=== PATIENT | female | born 1980 | race Hispanic/Latino ===

== ENCOUNTER 2022-07-23 02:05 | Emergency (ER) | payer BC ==
--- OUTSIDE RECORDS SUMMARY | 2022-07-23 02:09 | XMS REPORT | Continuity of Care Document ---
:1980 Author Organization [facility] t Address [address] [place] [address] Care Team Providers Name Role Phone Raquel Dyer MD Primary Care Physician NANCY BRAND Attending Clinician Unavailable Nancy Spear Attending Clinician [phone] Doctor Unassigned, [place] Attending Clinician Unavailable DON DUNN Attending Clinician Unavailable LAB90 Attending Clinician Unavailable Raquel Dyer MD Attending Clinician [phone] Provider, [facility] Attending Clinician Unavailable Maddi Finch Attending Clinician MADDI QURESHI Attending Clinician Unavailable Shayan Posada Attending Clinician SHAYAN WALLER Attending Clinician Unavailable Petros HUBBARD, Andreia Womack Attending Clinician Payers Payer Name Policy Type Policy Number Effective Date Expiration Date [id number]22 00:00:00 OUT OF STATE [facility] 2 [id number] 2021 00:00:00 Problems Condition Condition Condition Status Onset Resolution Last Treating Co mments Source Name Details Category Date Date Treatment Clinician Date Well adult Well adult Disease Active 2021-03 K elsey exam exam 2 Seybold 00:00: - 00 Externa l Mixed Mixed Disease Active 2021-03 Mikki hyperlipid hyperlipid 2 Se ybold emia emia 00:00: - 00 Externa l Class 1 Class 1 Disease Active 2021-03 Mikki obesity obesity 04-12 Seybold due to due to 00:00: - excess excess 00 Externa calories calories l without without serious serious comorbidit comorbidit y with y with body mass body mass index index (BMI) of (BMI) of 30.0 to 30.0 to 30.9 in 30.9 in adult adult Palpitatio Palpitatio Disease Active 2021-03 K elsey ns ns 2 Seybold 00:00: - 00 Externa l Vagina Vagina Disease Active Univers bleeding bleeding 04-14 ity of 00:00: [place] 00 Medical Branch Heart Heart Disease Active Overview: Univer s murmur murmur 03-30 Formattin ity of 00:00: g of this [place] 00 note Medical might be Branch different from the original. Reports since she was very young, asymptoma tic Supervisio Supervisio Disease Active 2013-03 U nivers n of other n of other 0-28 it y of normal normal 00:00: [place] , , 00 Me dical first first Branch trimester trimester Encounter Encounter Disease Active Overview: Univers for for 08-02 Formattin ity of 00:00: [place] of [place] screening screening 00 note Medi jose of mother of mother might be Br anch different from the original. ICD10 Diagnosis Term Garde Manager Utility High-risk High-risk Disease Active Overview: Univers 08-02 Formattin i ty of 00:00: g of this [place] 00 note Medical might be Branch different from the original. ICD10 Diagnosis Term Garde Manager Utility Antepartum Antepartum Disease Active Overview : Univers genitourin genitourin 08-02 Formattin ity of janine tract janine tract 00:00: g of this [place] infection infection 00 note Medi jose might be Branch different from the original. ICD10 Diagnosis Term Garde Manager Utility Acute Acute Disease Active Overview: Univer s upper upper 08-02 Formattin ity of respirator respirator 00:00: g of this [place] y y 00 note Medical infection infection might be Br anch different from the original. ICD10 Diagnosis Term Garde Manager Utility Disease Active Overview : Univers anemia anemia 5-24 Formattin ity of 00:00: g of this [place] 00 note Medical might be Branch different from the original. ICD10 Diagnosis Term Garde Manager Utility Disease Active Overview: Un daly delivery delivery 5-22 Formattin ity of delivered delivered 00:00: g of this [place] 00 note Medical might be Branch different from the original. ICD10 Diagnosis Term Garde Manager Utility Overweight Overweight Disease Active Overview : Univers Formattin ity of g of this [place] note Medical might be Branch different from the original. ICD10 Diagnosis Term Garde Manager Utility Other Other Disease Active Univers constipati constipati it y of on on [facility] Previous Previous Disease Active Unive rs [place]y of [place], [place] antepartum antepartum Me dical condition condition Bran ch or or complicati complicati on on Abdominal Abdominal Disease Active Overview: Univers pain pain Formattin ity of g of this [place] note Medical might be Branch different from the original. ICD10 Diagnosis Term Garde Manager Utility Need for Need for Disease Active Unive rs prophylact prophylact it y of ic ic [place] vaccinatio vaccinatio Me dical n and n and Branch inoculatio inoculatio n against n against influenza influenza Need for Need for Disease Active Unive rs prophylact prophylact it y of ic ic [place] vaccinatio vaccinatio Me dical n with n with Branch tetanus tetanus toxoid toxoid alone alone No known No known Disease Kelse y active active Seybold problems problems Allergies, Adverse Reactions, Alerts Allergy Allergy Status Severity Reaction(s) Onset Inactive Treating Comm ents Source Name Type Date Date Clinician NO KNOWN Drug Active Univers ALLERGIE Class ity of S [facility] Social History Social Habit Start Date Stop Date Quantity Comments Source Exposure to 2022-04-29 2022-05-09 Not sure University of SARS-CoV-2 00:00:00 10:46:00 [facility] (event) Branch Tobacco use and 2022-05-09 2022-05-09 Smokeless tobacco Un iversity of exposure 00:00:00 00:00:00 non-user [facility] Alcohol intake 2022-02-09 2022-02-09 Lifetime Mikki Sey bold - 00:00:00 00:00:00 non-drinker External (finding) Education 2022-02-09 2022-02-09 9 Mikki Scott - 00:00:00 00:00:00 External Sex [birth year] At [birth year] Mikki schaeffer - 00:00:00 00:00:00 External Smoking Status Start Date Stop Date Source Never smoked tobacco [facility] Medications Ordered Filled Start Stop Current Ordering Indication Dosage Frequency Signature Comments Components Source Medication Medication Date Date Medication? Clinician (SIG) Name Name No known 2021-03 No No known Kelse y medications - medication Se ybold 11:16: s - 33 Externa l No known No No known Kelse y medications - medication Se ybold 11:50: s 52 bromphenira Yes [id number] 5mL Take 5 mL Univers mine-pseudo 3-11 by mouth 4 it y of ephedrine-D 00:00: (four[place] (BROMFED 00 times Medical DM) 2-30-10 daily as Bran ch mg/5 mL needed for syrup Cold symptoms. azelastine Yes [id number] 1{spray Use 1 Univers 137 mcg 3-11 } [place] in ity of (0.1 %) 00:00: each [place] nasal spray 00 nostril 2 Med ical (two) Branch times daily. Use in each nostril as directed bromphenira 0 Yes [id number] 5mL Take 5 mL Univers mine-pseudo 3-11 by mouth 4 it y of ephedrine-D 00:00: (four[place] (BROMFED 00 times Medical DM) 2-30-10 daily as Bran ch mg/5 mL needed for syrup Cold symptoms. azelastine Yes [id number] 1{spray Use 1 Univers 137 mcg 3-11 } [place] in ity of (0.1 %) 00:00: each [place] nasal spray 00 nostril 2 Med ical (two) Branch times daily. Use in each nostril as directed bromphenira 0 Yes [id number] 5mL Take 5 mL Univers mine-pseudo 3-11 by mouth 4 it y of ephedrine-D 00:00: (four[place] M (BROMFED 00 times Medical DM) 2-30-10 daily as Bran ch mg/5 mL needed for syrup Cold symptoms. azelastine 2020- Yes [id number] 1{spray Use 1 Univers 137 mcg 3-11 } [place] in ity of (0.1 %) 00:00: each [place] nasal spray 00 nostril 2 Med ical (two) Branch times daily. Use in each nostril as directed bromphenira 2020- Yes [id number] 5mL Take 5 mL Univers mine-pseudo 3-11 by mouth 4 it y of ephedrine-D 00:00: (four[place] M (BROMFED 00 times Medical DM) 2-30-10 daily as Bran ch mg/5 mL needed for syrup Cold symptoms. azelastine Yes [id number] 1{spray Use 1 Univers 137 mcg 3-11 } [place] in ity of (0.1 %) 00:00: each [place] nasal spray 00 nostril 2 Med ical (two) Branch times daily. Use in each nostril as directed bromphenira Yes [id number] 10mL Take 10 mL Univers mine-pseudo 3-05 by mouth 3 it y of ephedrine-D 00:00: (three) [place] M (BROMFED 00 times Medical DM) 2-30-10 daily as Bran ch mg/5 mL needed for syrup Congestion /Allergies , Cold symptoms or Cough. benzonatate 2020-2020- No [id number] 100mg Take 1 Univers (TESSALON 3-05 03-16 capsule by Goran) 100 00:00: 04:59 mouth 3 [place] mg capsule 00 :00 (three) Medica l times Branch daily for 10 days. benzonatate 2020-2020- No [id number] 100mg Take 1 Univers (TESSALON 3-05 03-11 capsule by Goran) 100 00:00: 00:00 mouth 3 [place] mg capsule 00 :00 (three) Medica l times Branch daily for 10 days. bromphenira 2020- No [id number] 10mL Take 10 mL Univers mine-pseudo 3-05 03-11 by mouth 3 i ty of ephedrine-D 00:00: 00:00 (three[place] (BROMFED 00 :00 times Medical DM) 2-30-10 daily as Bran ch mg/5 mL needed for syrup Congestion /Allergies , Cold symptoms or Cough. Nitrofurant 2019-03 Yes [id number] 100mg Take 1 Univers oin&Nit. 1-05 capsule by ity o f [place] 00:00: mouth 2 [place] (MACROBID) 00 (two) Medical 100 mg times Branch capsule daily. Nitrofurant 2019-03 Yes [id number] 100mg Take 1 Univers oin&Nit. 1-05 capsule by ity o f [place] 00:00: mouth 2 [place] (MACROBID) 00 (two) Medical 100 mg times Branch capsule daily. Nitrofurant 2019-03 Yes [id number] 100mg Take 1 Univers oin&Nit. 1-05 capsule by ity o f [place] 00:[place]: mouth 2 [place] (MACROBID) 00 (two) Medical 100 mg times Branch capsule daily. Nitrofurant 2019-03 Yes [id number] 100mg Take 1 Univers oin&Nit. 1-05 capsule by ity o f [place] 00:00: mouth 2 [place] (MACROBID) 00 (two) Medical 100 mg times Branch capsule daily. Nitrofurant 2019-03 Yes [id number] 100mg Take 1 Univers oin&Nit. 1-05 capsule by ity o f [place] 00:[place]: mouth 2 [place] (MACROBID) 00 (two) Medical 100 mg times Branch capsule daily. Nitrofurant 2019-03- No [id number] 100mg Take 1 Univers oin&Nit. 1-05 03-11 capsule by ity of [place] 00:00: 00:00 mouth 2 [place] (MACROBID) 00 :00 (two) Medical 100 mg times Branch capsule daily. No known No Univers medications [facility] No known No Univers medications [facility] No known No Univers medications [facility] Immunizations Ordered Filled Immunization Date Status Comments [facility] e Immunization Name Name [facility] 2014-04-16 Completed [facility] 00:00:00 [facility] TDAP 2014-04-16 Completed [facility] 00:00:00 [facility] TDAP 2014-04-16 Completed University of 00:00:00 [place] [facility] TDAP 2014-04-16 Completed University of 00:00:00 [place] [facility] TDAP 2014-04-16 Completed University of 00:00:00 [place] [facility] TDAP 2014-04-16 Completed University of 00:00:00 [place] [facility] TDAP 2014-04-16 Completed University of 00:00:00 [place] [facility] TDAP 2014-04-16 Completed University of 00:00:00 [place] [facility] TDAP 2014-04-16 Completed University of 00:00:00 [place] [facility] TDAP 2014-04-16 Completed University of 00:00:00 [place] [facility] TDAP 2014-04-16 Completed University of 00:00:00 [place] [facility] TDAP 2014-04-16 Completed University of 00:00:00 [facility] Tdap- (Boostrix, 2014-04-16 Completed Mikki carmona Adacel) 00:00:00 Tdap- (Boostrix, 2014-04-16 Completed Mikki carmona - Adacel) 00:00:00 External Vital Signs Vital Name Observation Time Observation Value Comments Source Systolic blood 2022-05-09 16:54:00 132 mm[Hg] Univer sity of pressure [facility] Diastolic blood 2022-05-09 16:54:00 82 mm[Hg] Unive rsity of pressure [facility] Heart rate 2022-05-09 16:54:00 88 /min [facility] Body height 2022-05-09 16:54:00 152.4 cm [facility] Body weight 2022-05-09 16:54:00 69.627 kg [facility] BMI 2022-05-09 16:54:00 29.98 kg/m2 [facility] Systolic blood 2022-02-09 17:14:00 129 mm[Hg] Mikki Scott - pressure External Diastolic blood 2022-02-09 17:14:00 67 mm[Hg] Eda Scott - pressure External Heart rate 2022-02-09 17:14:00 86 /min Mikki carmona - External Body temperature 2022-02-09 17:14:00 37.11 Tierney Stefanie ey Seybold - External Respiratory rate 2022-02-09 17:14:00 14 /min Stefanie whalen Seybold - External Body height 2022-02-09 17:14:00 152.4 cm Mikki Reese eybold - External Body weight 2022-02-09 17:14:00 69.854 kg Mikki Reese eybold - External BMI 2022-02-09 17:14:00 30.08 kg/m2 Mikki Reese eybold - External Oxygen saturation in 2022-02-09 17:14:00 99 /min Mikki Seybold - Arterial blood by External Pulse oximetry Systolic blood 2021-05-02 16:58:00 132 mm[Hg] Mikki Seybold pressure Diastolic blood 2021-05-02 16:58:00 70 mm[Hg] Kelse y Seybold pressure Heart rate 2021-05-02 16:58:00 100 /min Mikki Reese eybold Body temperature 2021-05-02 16:58:00 36.56 Tierney Stefanie ey Seybold Respiratory rate 2021-05-02 16:58:00 18 /min Stefanie whalen Seybold Body height 2021-05-02 16:58:00 152.4 cm Mikki Reese eybold Body weight 2021-05-02 16:58:00 68.493 kg Mikki Reese eybold BMI 2021-05-02 16:58:00 29.49 kg/m2 Mikki Reese eybold Systolic blood 2020-05-12 21:22:00 131 mm[Hg] Univer sity of pressure [facility] Diastolic blood 2020-05-12 21:22:00 82 mm[Hg] Unive rsity of pressure [facility] Heart rate 2020-05-12 21:22:00 89 /min Universi ty [facility] Body temperature 2020-05-12 21:22:00 37 Tierney Univ ersity [facility] Respiratory rate 2020-05-12 21:22:00 18 /min Univ ersity [facility] Body height 2020-05-12 21:22:00 152.4 cm Universi [facility] Body weight 2020-05-12 21:22:00 65.772 kg [facility] BMI 2020-05-12 21:22:00 28.32 kg/m2 Universi ty of [place] [facility] [place] Oxygen saturation in 2020-05-12 21:22:00 97 /min University of Arterial blood by [facility] Pulse oximetry Branch Systolic blood 2020-05-04 21:58:00 144 mm[Hg] Univer sity of pressure [place] [facility] [place] Diastolic blood 2020-05-04 21:58:00 82 mm[Hg] Unive rsity of pressure [facility] Heart rate 2020-05-04 21:57:00 83 /min Universi ty of [facility] Body temperature 2020-05-04 21:57:00 36.72 Tierney Univ ersity of [facility] Respiratory rate 2020-05-04 21:57:00 18 /min Univ ersity of [facility] Body height 2020-05-04 21:57:00 152.4 cm Universi ty of [place] [facility] [place] Body weight 2020-05-04 21:57:00 67.132 kg Universi ty of [place] [facility] [place] BMI 2020-05-04 21:57:00 28.90 kg/m2 Universi ty [facility] Oxygen saturation in 2020-05-04 21:57:00 98 /min University of Arterial blood by [facility] Pulse oximetry Branch Systolic blood 2020-01-05 21:53:00 135 mm[Hg] Univer sity of pressure [facility] Diastolic blood 2020-01-05 21:53:00 92 mm[Hg] Unive rsity of pressure [facility] Heart rate 2020-01-05 21:52:00 75 /min Universi ty of [place] [facility] [place] Body height 2020-01-05 21:52:00 152.4 cm Universi ty [facility] [place] Body weight 2020-01-05 21:52:00 65.998 kg Universi ty [facility] BMI 2020-01-05 21:52:00 28.42 kg/m2 Universi ty [facility] Medical Branch Procedures Procedure Date / Time Performing Clinician Source Performed ASSIGNMENT OF BENEFITS 2022-05-09 16:50:53 Doctor Unassigned, Un [facility] [place] [facility] POCT GRP A STREP 2020-05-04 22:12:00 Maddi Qureshi [facility] (MOLECULAR) [facility] COVID-19 (MOLECULAR 2020-05-04 21:53:00 Maddi Qureshi [facility] NUCLEIC ACID AMPLIFICATION) LAB ONLY COVID 2020-05-04 21:53:00 Maddi Qureshi [facility] POCT URINALYSIS W/O 2020-01-05 00:00:00 Nancy Brand ty of [place] SPECIFIC GRAVITY [facility] Encounters Start End Encounter Admission Attending Care Care Encounter Source Date/Time Date/Time Type Type Clinicians Facility Department ID 2022-05-09 2022-05-09 Outpatient Jeannie BRAND [facility] [id number] Univers 11:00:00 14:59:10 [facility] 2022-05-09 2022-05-09 Office LORETTA Brand [id number] Univers 11:00:00 11:20:00 Visit [facility] [id number] i ty [facility] [id number] [place] as [phone] [facility] 095 Branch 2022-05-09 2022-05-09 Orders Doctor BRISA [id number] Univers 00:00:00 00:00:00 Only Unassigned, ОЛЕГ [id number] ity of [place] [facility] [id number] [place] as [phone] [facility] 009 Branch 2022-04-19 2022-04-19 Outpatient MIKKI DUNN [id number] Mikki 00:00:00 00:00:00 DON brennan 2022-03-21 2022-03-21 Outpatient Jeannie BRAND [facility] [id number] Univers 09:40:00 09:40:00 NANCY itdinorah [facility] 2022-02-12 2022-02-12 Outpatient MIKKI DUNN [id number] Mikki 00:00:00 00:00:00 DON brennan 2022-02-09 2022-02-09 Outpatient LAB90 MIKKI COLLAZO [id number] Mikki 12:05:00 12:05:00 Eliel brennan 2022-02-09 2022-02-09 Outpatient MIKKI DUNN [id number] Mikki 11:15:00 11:15:00 DON Seybol anu 2022-02-09 2022-02-09 Outpatient MIKKI DUNN MIKKI [id number] Mikki 00:00:00 00:00:00 DON Huffol anu 2021-05-02 2021-05-02 Office Michael Dyer [id number] Mikki 11:15:00 11:45:00 Visit Raquel Romero [id number] Se laury Kim 1.2.7.2.686 [id number] 2020-05-12 2020-05-12 Urgent Provider, [facility] [id number] Univers 15:18:36 15:45:29 Care Maddi Qureshi Health [id number] ity of [place] [id number] Terry as Professio [id number] [address] Office [facility] One 2020-05-12 2020-05-12 [facility] [id number] Univers 14:40:00 14:40:00 [facility] 2020-05-06 2020-05-06 Telephone Provider, [facility] 1.2.840.114 [id number] Univers 00:00:00 00:00:00 [facility] [id number] ity of Care [place] [id number] [place] as Professio [phone] [address] Office [facility] One 2020-05-04 2020-05-04 Urgent Provider, [facility] [id number] Univers 15:50:41 16:34:04 Shayan Vides [facility] [id number] ity of [place] [id number] [place] as Professio [id number] [address] Office [facility] One 2020-05-04 2020-05-04 [facility] [id number] Univers 16:20:00 16:20:00 SHAYAN [facility] 2020-05-04 2020-05-04 Letter Doctor BRISA [id number] Univers 00:00:00 00:00:00 (Out) Unassigned, ОЛЕГ [id number] [facility] [id number] [place] as [phone] [address] 2020-01-07 2020-01-07 Telephone ELIZABETH BrandIT 1.2.840.114 [id number] Univers 00:00:00 00:00:00 [facility] [id number] i ty of [facility] [id number] [place] as [id number] [address] 2020-01-05 2020-01-05 Office Brand [facility] [id number] Univers 15:42:51 16:12:51 Visit [facility] [id number] i ty of [facility] [id number] [place] as [phone] [address] 2020-01-05 2020-01-05 [facility] [id number] Univers 16:00:00 16:00:00 [facility] 2019-12-16 2019-12-16 Outpatient R [facility] [id number] Univers 15:00:00 15:00:00 [facility] 2014-05-19 2014-05-19 Patient ELIZABETH MorrellIT [id number] Univers 00:00:00 00:00:00 Secure Msg Agnieszka Y HEALTH [id number] ity of [facility] [id number] [place] [id number] [address] Results Test Description Test Time Test Comments Results Result Sour e Comments LAB ONLY COVID COVID DMT [facility] 5 InterpretationInte Te vins Medical 04:38:00 rpretation/Recomme Branch ndations: Molecular NAAT Tests for Active Infection with the SARS-CoV-2 Virus: The current test result is positive for the SARS-CoV-2 virus that causes COVID-19 illness. In sben-tz-giceafhw illness, the patient may be considered no longer infectious when it has been after 10 days since symptom onset, the patient has been afebrile for 24 hours without the use of fever-reducing medications, AND other symptoms of COVID-19 are improving. However, in patients who have been severely ill with COVID-19 or are severely immunocompromised, isolation up to 20 days after symptom onset is recommended. Asymptomatic patients are considered infectious for the first 10 days subsequent to the initial positive test result. From the onset of symptoms, if any, this result is likely to remain positive up to 2-4 weeks. Tests for IgM and/or IgG Antibodies to the SARS-CoV-2 Virus: ? Testing for IgM and IgG antibodies approximately 3 weeks after illness onset will likely indicate whether the patient has produced antibodies to the SARS-CoV-2 virus. However, some patients may take longer to develop detectable antibodies, while some patients who were infected with SARS-CoV-2 may never develop antibodies. While antibodies to SARS-CoV-2 may provide some degree of immunity, at this time the strength and duration of the antibody response is unknown. Interpretation Result Comments:These interpretation comments are based upon all COVID-19 testing the patient has had at [facility], including molecular NAAT testing (more commonly known as PCR testing and Rapid ID Now testing) and antibody testing. It does not take into account any testing that a patient has had outside of the [facility] medical record. [facility] LABORATORY SERVICESCOVID [id number] NAAT (no units) ? ? Date ? Value ? 05/04/2020 ? Positive (A) ? [facility] LABORATORY SERVICES COVID-19 (MOLECULAR TESTING 2020-05-05 22:10:00 NUCLEIC ACID AMPLIFICATION) Test Item Value Reference Range Interpretation Comme nts SARS-CoV-2 NAAT (test code = Positive Not Detected A 54255-0) ALEJO (test code = ALEJO) [email or web address] Aptima SARS-CoV-2 Assay is a nucleic acid amplification test intended for the qualitative detection of RNA from SARS-CoV-2 from nasopharyngeal (OUTPATIENT RECEPTIONIST) specimens. ?It is used under Emergency Use Authorization (EUA) by FDA. A positive result is indicative of the presence of SARS-CoV-2 RNA. ?Clinical correlation with patient history and other diagnostic information is necessary to determine patient infection status. A negative (Not Detected) result does not preclude SARS-CoV-2 infection. ?Clinical correlation with patient history and other diagnostic information should be used in patient management decisions. Invalid: Unable to generate a valid test result on this specimen. ?Please submit a new specimen for repeat testing if clinically indicated. Lab Interpretation (test code = Abnormal 94174-0) [facility] GRP A STREP (MOLECULAR)2020-05-04 22:12:00 Test Item Value Reference Range Interpretation Comments POCT GP A STREP (test code = neg Negative - Negative 38058-3) Lab Interpretation (test code = Normal 48614-0) [facility] GRP A STREP (MOLECULAR)2020-05-04 22:12:00 Test Item Value Reference Range Interpretation Comments POCT GP A STREP (test code = neg Negative - Negative 99892-8) Lab Interpretation (test code = Normal 92107-7) [facility] URINALYSIS W/O SPECIFIC [id number] 22:16:00 Test Item Value Reference Range Interpretation Comments POCT PH U (test code = 3254) 7 mg/dl 5-8 POCT U LEUK EST (test code = Negatiev Negative - Negative 3263) POCT U NIT (test code = 3262) Negative Negative - Negative POCT U PROT (test code = 3259) Negative Negative - Negative POCT U GLU (test code = 3256) Negative Negative - Negative POCT U KETONE (test code = 3258) Negatiev Negative - Negative POCT U BLD (test code = 3257) Negative Negative - Negative [facility] URINALYSIS W/O SPECIFIC [id number] 22:16:00 Test Item Value Reference Range Interpretation Comments POCT PH U (test code = 3254) 7 mg/dl 5-8 POCT U LEUK EST (test code = Negatiev Negative - Negative 3263) POCT U NIT (test code = 3262) Negative Negative - Negative POCT U PROT (test code = 4269) Negative Negative - Negative POCT U GLU (test code = 3156) Negative Negative - Negative POCT U KETONE (test code = 5748) Negatiev Negative - Negative POCT U BLD (test code = 9862) Negative Negative - Negative [facility]
[2022-07-23] MEDS ORDERED: FAMOTIDINE 20 MG/2 ML VIAL IV ONE (02:42)
[2022-07-23] MEDS ORDERED: ONDANSETRON 4 MG/2 ML VIAL ONE (02:42)
[2022-07-23] MEDS ORDERED: KETOROLAC 30 MG/ML INJ ONE (02:42)
[2022-07-23] MEDS ORDERED: NA CHLORIDE 0.9% 1,000 ML ONE (02:42)
[2022-07-23 03:05] LABS: Absolute Lymphocytes (CBC) 2.5 K/uL (0.7-4.9); Hematocrit 40.4 % (36.0-45.0); MPV 7.6 fL (7.6-11.3); RBC Red Blood Cell Count 4.39 M/uL (3.86-4.86)
[2022-07-23 03:11] LABS: Specific Gravity 1.014 (1.005-1.030)
[2022-07-23 03:19] LABS: Specific Gravity 1.009 (1.005-1.030); Urine Bacteria >50 /HPF (<20); Urine Bilirubin NEGATIVE (Negative); Urine Blood 3+ (OVER) (Negative); Urine Clarity Turbid (Clear); Urine Color Colorless (Yellow); Urine Glucose NEGATIVE (Negative); Urine Mucus Slight /HPF (None Seen); Urine Protein 1+ (Negative); Urine RBC >50 /HPF (None Seen); Urine Urobilinogen Normal (Normal); Urine WBC Clump Occasional /HPF (None Seen); Urine pH 5.5 (5.0-7.0)
[2022-07-23 03:26] LABS: Albumin 3.7 g/dL (3.4-5.0); Bilirubin Total 0.3 mg/dL (0.2-1.0); Potassium 3.7 mEq/L (3.5-5.1); Protein, Total 7.5 g/dL (6.4-8.2)
[2022-07-23] MEDS ORDERED: NA CHLORIDE 0.9% 50 ML ONE (03:47)
[2022-07-23] MEDS ORDERED: CEFTRIAXONE 1000 MG/VIAL ONE (03:47)
--- NOTE | 2022-07-23 07:16 | ER ---
Nurse's Notes [facility] Name: Teresa Ramos Age: 41 yrs Sex: Female : 1980 Arrival Date: 07/23/2022 Time: 02:05 Bed 19 Private MD: Diagnosis: UTI/ Urinary tract infection, site not specified Presentation: 07/23 02:21 Chief complaint: Patient states: I have pain in my right lower back that radiates kd3 around to the front in my right lower abdomen and it also goes down my right leg a little bit. It also hurts a bit to urinate. Coronavirus screen: Vaccine status: Patient reports receiving the 2nd dose of the covid vaccine. Ebola Screen: No symptoms or risks identified at this time. Initial Sepsis Screen: Does the patient meet any 2 criteria? No. Patient's initial sepsis screen is negative. Does the patient have a suspected source of infection? No. Patient's initial sepsis screen is negative. Risk Assessment: Do you want to hurt yourself or someone else? Patient reports no desire to harm self or others. Onset of symptoms was July 23, 2022. 02:21 Method Of Arrival: Ambulatory kd3 02:21 Acuity: SHEREE 3 kd3 Triage Assessment: 02:23 General: Appears uncomfortable, Behavior is calm, cooperative. GI: Abdomen is kd3 non-distended. Historical: - Allergies: 02:23 No Known Allergies; kd3 - Immunization history:: Adult Immunizations up to date. - Social history:: Smoking status: Patient denies any tobacco usage or history of. Screenin:23 Abuse screen: Denies threats or abuse. Denies injuries from another. Nutritional ha1 screening: No deficits noted. Tuberculosis screening: No symptoms or risk factors identified. Assessment: 02:22 General: Appears comfortable, Behavior is calm, cooperative. Pain: Complains of pain in ha1 abdomen. Neuro: Level of Consciousness is awake, alert, obeys commands, Oriented to person, place, time, situation. Cardiovascular: Patient's skin is warm and dry. Respiratory: Airway is patent Respiratory effort is even, unlabored, Respiratory pattern is regular, symmetrical. GI: Abdomen is flat, non-distended, Reports lower abdominal pain. : No signs and/or symptoms were reported regarding the genitourinary system. Musculoskeletal: Circulation, motion, and sensation intact. Range of motion: intact in all extremities. 03:20 Reassessment: Patient and/or family updated on plan of care and expected duration. Pain ha1 level reassessed. Patient is alert, oriented x 3, equal unlabored respirations, skin warm/dry/pink. going to CT Patient states feeling better. Patient states symptoms have improved. 04:20 Reassessment: Patient and/or family updated on plan of care and expected duration. Pain ha1 level reassessed. Patient is alert, oriented x 3, equal unlabored respirations, skin warm/dry/pink. Patient states feeling better. Patient states symptoms have improved. 05:20 Reassessment: Patient and/or family updated on plan of care and expected duration. Pain ha1 level reassessed. Patient is alert, oriented x 3, equal unlabored respirations, skin warm/dry/pink. Patient denies pain at this time. Patient states feeling better. Patient states symptoms have improved. 06:20 Reassessment: Patient and/or family updated on plan of care and expected duration. Pain ha1 level reassessed. Patient is alert, oriented x 3, equal unlabored respirations, skin warm/dry/pink. awaiting on CT results. 07:00 Reassessment: Patient appears in no apparent distress at this time. Patient and/or kc6 family updated on plan of care and expected duration. Pain level reassessed. Patient is alert, oriented x 3, equal unlabored respirations, skin warm/dry/pink. Vital Signs: 02:21 BP 139 / 88; Pulse 94; Resp 16; Temp 98.3(O); Pulse Ox 99% on R/A; Weight 68.04 kg; kd3 Height 5 ft. 0 in. ; 02:45 BP 122 / 70; Pulse 94; Resp 19 S; Pulse Ox 99% on R/A; ha1 03:15 BP 108 / 65; Pulse 89; Resp 15 S; Pulse Ox 99% on R/A; ha1 04:15 BP 125 / 62; Pulse 98; Resp 19 S; Pulse Ox 100% on R/A; ha1 05:15 BP 106 / 65; Pulse 88; Resp 16 S; Pulse Ox 100% on R/A; ha1 06:30 BP 100 / 62; Pulse 86; Resp 15 S; Pulse Ox 98% on R/A; ha1 07:03 BP 100 / 62; Pulse 72; Resp 18 S; Pulse Ox 100% on R/A; kc6 02:21 Body Mass Index 29.29 (68.04 kg, 152.4 cm) kd3 ED Course: 02:08 Patient arrived in ED. mr 02:15 Patient has correct armband on for positive identification. Placed in gown. Bed in low ha1 position. Call light in reach. Side rails up X 1. 02:22 Donna Nielsen RN is Primary Nurse. ha1 02:23 Barron Andrade MD is Attending Physician. bs3 02:23 Triage completed. kd3 02:23 Arm band placed on right wrist. kd3 02:57 CBC with Diff Sent. kd3 02:57 CMP Sent. kd3 02:57 Lipase Sent. kd3 02:57 Test, Urine Sent. kd3 02:57 Urinalysis w/ reflexes Sent. kd3 02:57 Inserted saline lock: 20 gauge in right antecubital area, using aseptic technique. kd3 Blood collected. 03:46 CT Abd/Pelvis - Without Contrast In Process Unspecified. EDMS 07:00 Report received from Donna Nielsen RN. kc6 07:13 Attending Physician role handed off by Barron Andrade MD rt 07:13 Andrew Zacarias MD is Attending Physician. rt 07:22 No provider procedures requiring assistance completed. IV discontinued, intact, kc6 bleeding controlled, No redness/swelling at site. Pressure dressing applied. Administered Medications: 02:56 Drug: NS 0.9% IV 1000 ml Route: IV; Rate: 1 bolus; Site: right antecubital; kd3 03:30 Follow up: Response: No adverse reaction; IV Status: Completed infusion; IV Intake: ha1 1000ml 02:56 Drug: Famotidine IVP 20 mg Route: IVP; Site: right antecubital; kd3 03:30 Follow up: Response: No adverse reaction ha1 02:56 Drug: TORadol - Ketorolac IVP 15 mg Route: IVP; Site: right antecubital; kd3 03:30 Follow up: Response: No adverse reaction; Pain is decreased ha1 02:56 Drug: Ondansetron IVP 4 mg Route: IVP; Site: right antecubital; kd3 03:30 Follow up: Response: No adverse reaction ha1 03:35 Drug: Rocephin IV 1 grams Route: IV; Rate: 1 bolus; Site: left antecubital; ha1 04:06 Follow up: Response: No adverse reaction; IV Status: Completed infusion; IV Intake: [id number] Medication: 07:23 VIS not applicable for this client. kc6 Intake: 03:30 IV: 1000ml; Total: 1000ml. ha1 04:06 IV: 50ml; Total: 1050ml. ha1 Outcome: 07:16 Discharge ordered by MD. rt 07:23 Discharged to home ambulatory. kc6 07:23 Condition: stable 07:23 Discharge instructions given to patient, Instructed on discharge instructions, follow up and referral plans. medication usage, Demonstrated understanding of instructions, follow-up care, medications, Prescriptions given X 1. 07:23 Patient left the ED. kc6 Signatures: Dispatcher [employer] [facility] EpifanioHetal mr SpencetteElvia RN RN kd3 Donna Nielsen RN RN ha1 Ale Delong RN RN kc6 Barron Andrade MD MD bs3 Andrew Zacarias MD MD rt Corrections: (The following items were deleted from the chart) 04:06 03:20 Rocephin IV 1 grams IV at 1 bolus in left antecubital ha1 ha1
--- NOTE | 2022-07-23 07:16 | EDPHYS ---
Physician Documentation [facility] Name: Teresa Ramos Age: 41 yrs Sex: Female : 1980 Arrival Date: 07/23/2022 Time: 02:05 Bed 19 Private MD: ED Physician Andrew Zacarias HPI: 07/23 02:41 This 41 yrs old Female presents to ER via Ambulatory with complaints of bs3 Abdominal Pain. 02:41 41-year-old female presents with dysuria right lower abdominal pain and right flank bs3 pain that started yesterday and is getting worse no associated symptoms she notes a history of kidney stones before but she cannot recall if this feels different she denies any fevers chills chest pain shortness of breath or anything else bothering her she denies any vaginal bleeding or discharge she does not think that she could be she has not taken anything for the pain. Historical: - Allergies: 02:23 No Known Allergies; kd3 - Immunization history:: Adult Immunizations up to date. - Social history:: Smoking status: Patient denies any tobacco usage or history of. ROS: 02:41 Constitutional: Negative for fever, chills bs3 02:41 All other systems are negative. Exam: 02:41 Constitutional: This is a well developed, well nourished patient who is awake, alert, bs3 and in no acute distress. Head/Face: Normocephalic, atraumatic. Eyes: Pupils equal round and reactive to light, extra-ocular motions intact. Lids and lashes normal. ENT: mmm, no posterior phyarngeal erythema Chest/axilla: Normal chest wall appearance and motion. Nontender with no deformity. No lesions are appreciated. Cardiovascular: Regular rate and rhythm with a normal S1 and S2. symmetric pulses in upper extremities Respiratory: Lungs have equal breath sounds bilaterally, clear to auscultation, no respiratory distress Abdomen/GI: Soft, non-tender, no rebound or guarding Back: Right CVA tenderness Skin: Warm, dry with normal turgor. Normal color with no rashes, no lesions, and no evidence of cellulitis. MS/ Extremity: Pulses equal, no cyanosis. Neurovascular intact. Full, normal range of motion. Neuro: Awake and alert, GCS 15, oriented to person, place, time, and situation. Cranial nerves II-XII grossly intact. Motor strength 5/5 in all extremities. Sensory grossly intact. Psych: Awake, alert, with orientation to person, place and time. Behavior, mood, and affect are within normal limits. Vital Signs: 02:21 BP 139 / 88; Pulse 94; Resp 16; Temp 98.3(O); Pulse Ox 99% on R/A; Weight 68.04 kg; kd3 Height 5 ft. 0 in. ; 02:45 BP 122 / 70; Pulse 94; Resp 19 S; Pulse Ox 99% on R/A; ha1 03:15 BP 108 / 65; Pulse 89; Resp 15 S; Pulse Ox 99% on R/A; ha1 04:15 BP 125 / 62; Pulse 98; Resp 19 S; Pulse Ox 100% on R/A; ha1 05:15 BP 106 / 65; Pulse 88; Resp 16 S; Pulse Ox 100% on R/A; ha1 06:30 BP 100 / 62; Pulse 86; Resp 15 S; Pulse Ox 98% on R/A; ha1 07:03 BP 100 / 62; Pulse 72; Resp 18 S; Pulse Ox 100% on R/A; kc6 02:21 Body Mass Index 29.29 (68.04 kg, 152.4 cm) kd3 MDM: 02:23 Patient medically screened. bs3 02:41 Data reviewed: vital signs, nurses notes. ED course: Possible musculoskeletal as it bs3 seems to radiate down her leg possible UTI/Vijay possible kidney stone will rule out infected stone I considered appendicitis but her right lower quadrant is soft she has no vaginal discharge to make me concerned about TOA and her urinary symptoms are less suggestive of torsion if work-up is nondiagnostic we will consider ultrasound of the pelvis. 04:51 ED course: ua consistent with uti, likely pylenephritis given back pain. . bs3 07:42 Differential diagnosis: Pyelo-, infected stone. Consideration of Admission/Observation rt Escalation of care including admission/observation considered. Discussion of test interpretation with radiology: I had a discussion with radiology regarding a test interpretation. No stone, possible stricture at ureter. Counseling: I had a detailed discussion with the patient and/or guardian regarding: the historical points, exam findings, and any diagnostic results supporting the discharge/admit diagnosis, lab results, radiology results, the need for outpatient follow up, to return to the emergency department if symptoms worsen or persist or if there are any questions or concerns that arise at home. 07/23 02:25 Order name: CBC with Diff; Complete Time: 04:32 sb4 07/23 02:25 Order name: CMP; Complete Time: 03:31 sb4 07/23 02:25 Order name: Lipase; Complete Time: 03:31 sb4 07/23 02:25 Order name: Test, Urine; Complete Time: 03:19 sb4 07/23 02:25 Order name: Urinalysis w/ reflexes; Complete Time: 03:31 sb4 07/23 03:22 Order name: Urine Culture EDWA 07/23 02:41 Order name: CT Abd/Pelvis - Without Contrast bs3 07/23 02:25 Order name: IV Saline Lock; Complete Time: 02:56 sb4 07/23 02:25 Order name: Labs collected and sent; Complete Time: 02:56 sb4 Administered Medications: 02:56 Drug: NS 0.9% IV 1000 ml Route: IV; Rate: 1 bolus; Site: right antecubital; kd3 03:30 Follow up: Response: No adverse reaction; IV Status: Completed infusion; IV Intake: ha1 1000ml 02:56 Drug: Famotidine IVP 20 mg Route: IVP; Site: right antecubital; kd3 03:30 Follow up: Response: No adverse reaction ha1 02:56 Drug: TORadol - Ketorolac IVP 15 mg Route: IVP; Site: right antecubital; kd3 03:30 Follow up: Response: No adverse reaction; Pain is decreased ha1 02:56 Drug: Ondansetron IVP 4 mg Route: IVP; Site: right antecubital; kd3 03:30 Follow up: Response: No adverse reaction ha1 03:35 Drug: Rocephin IV 1 grams Route: IV; Rate: 1 bolus; Site: left antecubital; ha1 04:06 Follow up: Response: No adverse reaction; IV Status: Completed infusion; IV Intake: [id number] Disposition Summary: 07/23/22 07:16 Discharge Ordered Location: Home rt Problem: new rt Symptoms: have improved rt Condition: Stable rt Diagnosis - UTI/ Urinary tract infection, site not specified rt Followup: bs3 - With: Private Physician - When: 2 - 3 days - Reason: Re-evaluation by your physician Discharge Instructions: - Discharge Summary Sheet bs3 - Pyelonephritis, Adult, [id number] bs3 Forms: - Medication Reconciliation Form rt - Thank You Letter rt - Antibiotic Education rt - Prescription Opioid Use rt Prescriptions: - cefpodoxime 100 mg Oral Tablet - take 1 tablet by ORAL route every 12 hours for 10 days take with food; 20 bs3 tablet; Refills: 0, Product Selection Permitted Signatures: Dispatcher [employer] Elvia Kinsey RN RN kd3 Donna Nielsen RN RN ha1 Barron Andrade MD MD bs3 Ewa Lauren PA-C PAAnson sb4 Andrew Zacarias MD MD rt
[2022-07-23 07:32] VITALS: TEMP 98.3
--- NOTE | 2022-07-23 07:37 | RAD REPORT ---
EXAM DESCRIPTION: CT - Abdomen Pelvis Wo Contrast - 07/23/2022 3:44 am CLINICAL HISTORY: right flank and rlq pain COMPARISON: No comparisons TECHNIQUE: Thin cut axial CT imaging of the abdomen and pelvis was performed without IV contrast. Mu ltiplanar reformats were generated and reviewed. All CT scans are performed using dose optimization technique as appropriate and may include automated exposure control or mA/KV adjustment according to patient size. I was notified of technical issues with sending the study to the overnight reporting service. The rep ort was then dictated as soon as I was on site. FINDINGS: No suspicious findings in the lung bases. The liver, spleen, and pancreas show no suspicious findings. Numerous small layering gallstones. No e vidence of intra or extrahepatic biliary ductal dilation. Symmetric renal contour, without suspicious parenchymal findings within limits of noncontrast techniq ue. Dilated right renal pelvis to the level of the ureteric jet, with mild parapelvic fat stranding, however without obstructing calculus. No hydroureteronephrosis or obstructing calculi on the left. No dilated bowel loops or bowel wall thickening. No free air, free fluid or inflammatory stranding. S mall umbilical hernia containing fat. No suspicious mass or bulky lymphadenopathy. The urinary bladde r is without significant finding. No suspicious bony findings. IMPRESSION: Dilated renal pelvis without an obstructing calculus. This may relate to a pelviureteric junction stricture. Mild parapelvic fat stranding could reflect pyelitis. Cholelithiasis. The findings were communicated to Andrew Zacarias on 07/23/2022 at 07:32 hours.
[2022-07-23 07:41] VITALS: BP 100/62
[2022-07-23 07:43] VITALS: O2SAT 100
== END 2022-07-23 07:23 | disposition home or self-care (01) ==
LOC: ER 02:05
DX: N39.0 Urinary tract infection, site not specified (principal)
CPT/HCPCS: 87088; 85025; 81001; 87086; 36415; 81025; 83690; 80053; 74176; J2405; J7030; J0696; 87077; 87186